=== PATIENT | male | born 1995 | race Caucasian/White ===

== ENCOUNTER 2020-07-14 15:29 | Inpatient (IN) | payer MEDICAID ==
[~2020-07-14] VITALS: Ht 172.7 cm; Wt 84.8 kg
[2020-07-14] MEDS ORDERED: HALOPERIDOL 5 MG TABLET PO PRN (22:15)
[2020-07-14 22:22] VITALS: BP 120/72
[2020-07-15] VITALS (7 sets, daily range): BP systolic 109–134; BP diastolic 63–89
[2020-07-15] MEDS ORDERED: CloNIDine HCL 0.1 MG TABLET PO PRN (08:00)
[2020-07-15] MEDS ORDERED: PETROLATUM,WHITE 28 GM JELLY TP PRN (08:00)
[2020-07-15] MEDS ORDERED: GuaiFENesin/D-METHORPHAN [SUGAR-FREE] 200-20MG/10 ML SYRUP UDCUP PO PRN (08:00)
[2020-07-15] MEDS ORDERED: LOPERAMIDE HCL 2 MG CAPSULE PO PRN (08:00)
[2020-07-15] MEDS ORDERED: IBUPROFEN 400 MG TABLET PO PRN (08:00)
[2020-07-15] MEDS ORDERED: ACETAMINOPHEN 325 MG TABLET PO PRN (08:00)
[2020-07-15] MEDS ORDERED: ALBUTEROL SULFATE HFA 90 MCG/PUFF 8 GM INHALER IH PRN (08:00)
[2020-07-15] MEDS ORDERED: MAG HYDROX/AL HYDROX/SIMETH ES 30 ML SUSPENSION UDCUP PO PRN (08:00)
[2020-07-15] MEDS ORDERED: NICOTINE 14 MG/24 HOUR PATCH TD PRN (08:00)
[2020-07-15] MEDS ORDERED: MAGNESIUM HYDROXIDE SUSPENSION 30 ML UDCUP PO PRN (08:00)
[2020-07-15] MEDS ORDERED: ONDANSETRON HCL 4 MG TABLET PO PRN (08:00)
[2020-07-15] MEDS ORDERED: DOCUSATE SODIUM 100 MG CAPSULE PO PRN (08:00)
[2020-07-15 08:48] LABS: BASOPHILS % (AUTO) 0.6 % (0.0-2.0); EOSINOPHILS % (AUTO) 3.5 % (1.0-6.0); HEMATOCRIT 39.9 % (41-53); HEMOGLOBIN 13.9 g/dL (13.5-17.5); LYMPHOCYTES # (AUTO) 1.3 K/uL (1.0-4.8); LYMPHOCYTES % (AUTO) 30.5 % (22.0-44.0); MEAN CORPUSCULAR HEMOGLOBIN 30.3 pg (26.0-34.0); MEAN CORPUSCULAR HGB CONC 34.9 G/dL (31.0-37.0); MEAN CORPUSCULAR VOLUME 87 fL (80-100); MONOCYTES # (AUTO) 0.3 K/uL (0.1-1.0); MONOCYTES % (AUTO) 7.8 % (2.0-9.0); NEUTROPHILS # (AUTO) 2.5 K/uL (1.8-7.7); NEUTROPHILS % (AUTO) 57.6 % (40.0-70.0); PLATELET COUNT (AUTO) 190 K/uL (150-450); RED CELL DISTRIBUTION WIDTH 12.9 % (11.5-14.5)
[2020-07-15 09:22] LABS: ALANINE AMINOTRANSFERASE 28 U/L (12-78); ALKALINE PHOSPHATASE 35 U/L (46-116); ANION GAP 7 mmol/L (8-16); ASPARTATE AMINOTRANSFERASE 21 U/L (15-37); BILIRUBIN,TOTAL 0.9 mg/dL (0.1-1.0); CALCIUM, TOTAL 9.2 mg/dL (8.8-10.5); CARBON DIOXIDE 26 mmol/L (22-29); CHLORIDE 102 mmol/L (98-107); CHOL/HDL RATIO 2.5 (4.2-7.3); CHOLESTEROL 150 mg/dL (131-200); CREATININE 0.76 mg/dL (0.60-1.30); FREE T4 (FREE THYROXINE) 1.19 ng/dL (0.76-1.46); GLOMERULAR FILTR. RATE CALC > 60 mL/min (>60); GLUCOSE,RANDOM 82 mg/dL (70-110); HDL CHOLESTEROL 60 mg/dL (40-60); LDL CHOL (CALC.) 79 mg/dL (0-130); POTASSIUM 4.1 mmol/L (3.5-5.1); SODIUM SERUM 135 mmol/L (136-145); THYROID STIMULATING HORMONE 2.06 uIU/mL (0.36-3.74); TOTAL PROTEIN, SERUM 7.3 g/dL (6.4-8.2); TRIGLYCERIDES 53 mg/dL (15-150); UREA NITROGEN, BLOOD 16 mg/dL (7-18)
[2020-07-15] MEDS: LORazepam 2 MG TABLET PO PRN ×3 (10:42→20:09)
[2020-07-15] MEDS ORDERED: CYANOCOBALAMIN 1,000 MCG/ML VIAL IM ONE (11:45)
[2020-07-15] MEDS ORDERED: LORazepam 2 MG TABLET PO PRN (11:45)
[2020-07-15] MEDS: MULTIVITAMINS WITH MINERALS, THERAPEUTIC TABLET PO SCH (12:54)
[2020-07-15] MEDS: FOLIC ACID 1 MG TABLET PO SCH (12:54)
[2020-07-15] MEDS: THIAMINE 100 MG TABLET PO SCH (16:03)
[2020-07-15] MEDS: QUEtiapine FUMARATE 200 MG TABLET PO SCH (20:09)
[2020-07-16 06:31] VITALS: BP 103/60
[2020-07-16 08:16] VITALS: BP 125/73
[2020-07-16] MEDS: MULTIVITAMINS WITH MINERALS, THERAPEUTIC TABLET PO SCH (08:50)
[2020-07-16] MEDS: FOLIC ACID 1 MG TABLET PO SCH (08:50)
[2020-07-16] MEDS: THIAMINE 100 MG TABLET PO SCH ×2 (08:50→16:40)
[2020-07-16] MEDS: LORazepam 2 MG TABLET PO SCH ×4 (08:50→20:14)
[2020-07-16] MEDS ORDERED: HALOPERIDOL 10 MG TABLET PO PRN (09:30)
[2020-07-16] MEDS: LORazepam 2 MG TABLET PO PRN (10:10)
[2020-07-16 15:42] VITALS: BP 118/82
[2020-07-16 16:12] VITALS: BP 132/81
[2020-07-16] MEDS: QUEtiapine FUMARATE 200 MG TABLET PO SCH (20:14)
[2020-07-17 05:31] VITALS: BP 125/80
[2020-07-17 08:24] VITALS: BP 102/50
[2020-07-17] MEDS: THIAMINE 100 MG TABLET PO SCH ×2 (09:04→16:15)
[2020-07-17] MEDS: FOLIC ACID 1 MG TABLET PO SCH (09:04)
[2020-07-17] MEDS: LORazepam 2 MG TABLET PO SCH ×4 (09:04→20:34)
[2020-07-17] MEDS: MULTIVITAMINS WITH MINERALS, THERAPEUTIC TABLET PO SCH (09:04)
[2020-07-17 14:30] VITALS: BP 97/56
[2020-07-17 14:38] VITALS: BP 98/56
[2020-07-17 16:00] VITALS: BP 137/71
[2020-07-17 16:14] VITALS: BP 137/71
[2020-07-17] MEDS: LORazepam 2 MG TABLET PO PRN (18:40)
[2020-07-17] MEDS: QUEtiapine FUMARATE 200 MG TABLET PO SCH (20:34)
[2020-07-18 05:51] VITALS: BP 119/73
[2020-07-18 05:54] VITALS: BP 119/73
[2020-07-18] MEDS ORDERED: LORazepam 1 MG TABLET PO PRN (07:00)
[2020-07-18 08:35] LABS: APPEARANCE,URINE CLEAR (CLEAR); BILIRUBIN,URINE NEGATIVE (NEGATIVE); GLUCOSE, URINE (UA) NEGATIVE (NEGATIVE); KETONES,URINE NEGATIVE (NEGATIVE); LEUKOCYTE ESTERASE ,URINE NEGATIVE (NEGATIVE); NITRATE,URINE NEGATIVE (NEGATIVE); OCCULT BLOOD,URINE NEGATIVE (NEGATIVE); PH,URINE 6.5 (5.0-8.0); PROTEIN,URINE NEGATIVE (NEGATIVE); UROBILINOGEN,URINE 0.2 mg/dL (<=1.0)
[2020-07-18 08:37] VITALS: BP 126/88
[2020-07-18 08:40] LABS: AMPHET/METH SCREEN,URINE NEGATIVE (NEGATIVE); BARBITURATE SCREEN, URINE NEGATIVE (NEGATIVE); BENZODIAZEPINES SCREEN,URINE POSITIVE (NEGATIVE); CANNABINOID SCREEN,URINE NEGATIVE (NEGATIVE); COCAINE SCREEN,URINE NEGATIVE (NEGATIVE); METHADONE SCREEN, URINE NEGATIVE (NEGATIVE); OPIATE SCREEN,URINE NEGATIVE (NEGATIVE)
[2020-07-18 08:41] LABS: PHENCYCLIDINE SCREEN,URINE NEGATIVE (NEGATIVE)
[2020-07-18] MEDS: FOLIC ACID 1 MG TABLET PO SCH (09:39)
[2020-07-18] MEDS: MULTIVITAMINS WITH MINERALS, THERAPEUTIC TABLET PO SCH (09:39)
[2020-07-18] MEDS: LORazepam 1 MG TABLET PO SCH ×4 (09:40→20:27)
[2020-07-18] MEDS: THIAMINE 100 MG TABLET PO SCH ×2 (09:40→16:07)
[2020-07-18 14:50] VITALS: BP 126/88
[2020-07-18 16:22] VITALS: BP 130/66
[2020-07-18] MEDS: QUEtiapine FUMARATE 200 MG TABLET PO SCH (20:27)
[2020-07-19 05:00] VITALS: BP 119/59
[2020-07-19 06:00] VITALS: BP 119/69
[2020-07-19 08:00] VITALS: BP 128/60
[2020-07-19 08:51] VITALS: BP 128/60
[2020-07-19] MEDS: MULTIVITAMINS WITH MINERALS, THERAPEUTIC TABLET PO SCH (09:13)
[2020-07-19] MEDS: FOLIC ACID 1 MG TABLET PO SCH (09:13)
[2020-07-19] MEDS: THIAMINE 100 MG TABLET PO SCH ×2 (09:13→16:28)
[2020-07-19] MEDS: LORazepam 2 MG TABLET PO PRN (09:14)
[2020-07-19] MEDS: LORazepam 1 MG TABLET PO PRN ×2 (14:10→20:10)
[2020-07-19 16:18] VITALS: BP 113/72
[2020-07-19 19:06] VITALS: BP 113/72
[2020-07-19] MEDS: QUEtiapine FUMARATE 200 MG TABLET PO SCH (20:10)
[2020-07-20 01:34] VITALS: BP 114/56
[2020-07-20 06:05] VITALS: BP 114/56
[2020-07-20] MEDS: LORazepam 2 MG TABLET PO PRN ×3 (08:07→20:07)
[2020-07-20] MEDS: THIAMINE 100 MG TABLET PO SCH ×2 (08:07→16:40)
[2020-07-20] MEDS: FOLIC ACID 1 MG TABLET PO SCH (08:07)
[2020-07-20] MEDS: MULTIVITAMINS WITH MINERALS, THERAPEUTIC TABLET PO SCH (08:07)
[2020-07-20 08:52] VITALS: BP 109/64
[2020-07-20 14:29] VITALS: BP 108/75
[2020-07-20 16:31] VITALS: BP 132/81
[2020-07-20] MEDS: QUEtiapine FUMARATE 200 MG TABLET PO SCH (20:07)
[2020-07-21 00:55] VITALS: BP 112/65
[2020-07-21] MEDS: THIAMINE 100 MG TABLET PO SCH ×2 (09:34→16:12)
[2020-07-21] MEDS: MULTIVITAMINS WITH MINERALS, THERAPEUTIC TABLET PO SCH (09:34)
[2020-07-21] MEDS: SERTRALINE HCL 50 MG TABLET PO SCH (09:34)
[2020-07-21] MEDS: FOLIC ACID 1 MG TABLET PO SCH (09:34)
[2020-07-21] MEDS: LORazepam 2 MG TABLET PO PRN ×3 (09:53→20:00)
[2020-07-21 10:46] VITALS: BP 132/80
[2020-07-21 17:55] VITALS: BP 107/66
[2020-07-21] MEDS: QUEtiapine FUMARATE 200 MG TABLET PO SCH (20:00)
[2020-07-22] MEDS: THIAMINE 100 MG TABLET PO SCH ×2 (08:38→16:42)
[2020-07-22] MEDS: LORazepam 2 MG TABLET PO PRN ×2 (08:38→16:42)
[2020-07-22] MEDS: FOLIC ACID 1 MG TABLET PO SCH (08:38)
[2020-07-22] MEDS: SERTRALINE HCL 50 MG TABLET PO SCH (08:38)
[2020-07-22] MEDS: MULTIVITAMINS WITH MINERALS, THERAPEUTIC TABLET PO SCH (08:38)
[2020-07-22 09:31] VITALS: BP 114/70
[2020-07-22 16:30] VITALS: BP 117/72
[2020-07-22] MEDS: QUEtiapine FUMARATE 200 MG TABLET PO SCH (20:08)
[2020-07-23 04:40] VITALS: BP 103/55
[2020-07-23] MEDS: LORazepam 2 MG TABLET PO PRN ×3 (09:02→21:06)
[2020-07-23] MEDS: FOLIC ACID 1 MG TABLET PO SCH (09:02)
[2020-07-23] MEDS: MULTIVITAMINS WITH MINERALS, THERAPEUTIC TABLET PO SCH (09:02)
[2020-07-23] MEDS: THIAMINE 100 MG TABLET PO SCH ×2 (09:02→16:57)
[2020-07-23] MEDS: SERTRALINE HCL 50 MG TABLET PO SCH (09:02)
[2020-07-23 09:20] VITALS: BP 106/60
[2020-07-23 16:00] VITALS: BP 100/64
[2020-07-23] MEDS: QUEtiapine FUMARATE 200 MG TABLET PO SCH (21:05)
[2020-07-24 00:45] VITALS: BP 101/59
[2020-07-24 08:35] VITALS: BP 116/62
[2020-07-24] MEDS: SERTRALINE HCL 50 MG TABLET PO SCH (08:54)
[2020-07-24] MEDS: MULTIVITAMINS WITH MINERALS, THERAPEUTIC TABLET PO SCH (08:54)
[2020-07-24] MEDS: FOLIC ACID 1 MG TABLET PO SCH (08:54)
[2020-07-24] MEDS: THIAMINE 100 MG TABLET PO SCH ×2 (08:54→16:35)
[2020-07-24] MEDS: LORazepam 2 MG TABLET PO PRN ×2 (10:07→14:52)
[2020-07-24 16:19] VITALS: BP 134/78
[2020-07-24] MEDS: QUEtiapine FUMARATE 200 MG TABLET PO SCH (19:56)
[2020-07-24] MEDS: ZOLPIDEM TARTRATE 10 MG TABLET PO PRN (20:12)
[2020-07-25 06:20] VITALS: BP 105/63
[2020-07-25 08:12] VITALS: BP 118/58
[2020-07-25] MEDS: THIAMINE 100 MG TABLET PO SCH (08:17)
[2020-07-25] MEDS: SERTRALINE HCL 50 MG TABLET PO SCH (08:17)
[2020-07-25] MEDS: MULTIVITAMINS WITH MINERALS, THERAPEUTIC TABLET PO SCH (08:17)
[2020-07-25] MEDS: LORazepam 2 MG TABLET PO PRN ×3 (08:59→20:36)
[2020-07-25 16:12] VITALS: BP 111/74
[2020-07-25] MEDS: QUEtiapine FUMARATE 200 MG TABLET PO SCH (20:04)
[2020-07-26 00:01] VITALS: BP 108/70
[2020-07-26 08:51] VITALS: BP 120/68
[2020-07-26] MEDS: SERTRALINE HCL 50 MG TABLET PO SCH (08:52)
[2020-07-26] MEDS: MULTIVITAMINS WITH MINERALS, THERAPEUTIC TABLET PO SCH (08:52)
[2020-07-26] MEDS: LORazepam 2 MG TABLET PO PRN ×2 (10:12→16:35)
[2020-07-26 16:35] VITALS: BP 118/69
[2020-07-26] MEDS: QUEtiapine FUMARATE 200 MG TABLET PO SCH (20:07)
[2020-07-26] MEDS: ZOLPIDEM TARTRATE 10 MG TABLET PO PRN (20:22)
[2020-07-27 06:46] VITALS: BP 120/82
[2020-07-27] MEDS: MULTIVITAMINS WITH MINERALS, THERAPEUTIC TABLET PO SCH (08:23)
[2020-07-27] MEDS: SERTRALINE HCL 50 MG TABLET PO SCH (08:23)
[2020-07-27] MEDS: LORazepam 2 MG TABLET PO PRN ×2 (08:23→20:06)
[2020-07-27 08:40] VITALS: BP 106/67
[2020-07-27 16:10] VITALS: BP 107/60
[2020-07-27] MEDS: QUEtiapine FUMARATE 200 MG TABLET PO SCH (20:06)
[2020-07-28 06:56] VITALS: BP 116/66
[2020-07-28 08:30] VITALS: BP 119/66
[2020-07-28] MEDS: LORazepam 2 MG TABLET PO PRN ×2 (09:21→16:19)
[2020-07-28] MEDS: SERTRALINE HCL 50 MG TABLET PO SCH (09:21)
[2020-07-28] MEDS: MULTIVITAMINS WITH MINERALS, THERAPEUTIC TABLET PO SCH (09:21)
[2020-07-28 18:19] VITALS: BP 130/79
[2020-07-28] MEDS: QUEtiapine FUMARATE 200 MG TABLET PO SCH (20:06)
[2020-07-28] MEDS: ZOLPIDEM TARTRATE 10 MG TABLET PO PRN (20:08)
[2020-07-29 00:06] VITALS: BP 125/77
[2020-07-29 08:23] VITALS: BP 120/72
[2020-07-29] MEDS: SERTRALINE HCL 50 MG TABLET PO SCH (08:58)
[2020-07-29] MEDS: MULTIVITAMINS WITH MINERALS, THERAPEUTIC TABLET PO SCH (08:58)
[2020-07-29] MEDS: LORazepam 2 MG TABLET PO PRN ×3 (08:58→20:23)
[2020-07-29 16:14] VITALS: BP 106/65
[2020-07-29] MEDS: QUEtiapine FUMARATE 200 MG TABLET PO SCH (20:09)
[2020-07-30 06:20] VITALS: BP 121/71
[2020-07-30 08:21] VITALS: BP 100/66
[2020-07-30 09:35] VITALS: BP 110/67
[2020-07-30] MEDS: MULTIVITAMINS WITH MINERALS, THERAPEUTIC TABLET PO SCH (09:36)
[2020-07-30] MEDS: SERTRALINE HCL 50 MG TABLET PO SCH (09:36)
[2020-07-30] MEDS: LORazepam 2 MG TABLET PO PRN (09:36)
[2020-07-30] MEDS ORDERED: QUET200T PO (12:08)
[2020-07-30] MEDS ORDERED: SERT50TA12 PO (12:08)
== END 2020-07-30 14:36 | disposition home or self-care (01) | DRG 750 ==
LOC: B3A 22:20 → B2S 07-19 13:45
DX: F25.1 Schizoaffective disorder, depressive type (principal); G40.909 Epilepsy, unspecified, not intractable, without status epilepticus; G44.209 Tension-type headache, unspecified, not intractable; R45.851 Suicidal ideations; D72.819 Decreased white blood cell count, unspecified; E87.1 Hypo-osmolality and hyponatremia; F10.20 Alcohol dependence, uncomplicated; Z59.0 Homelessness; Z91.5 Personal history of self-harm; Z88.8 Allergy status to other drugs, medicaments and biological substances
CPT/HCPCS: 80307; 84439; 84443; 87081; J3420